=== PATIENT | female | born 1990 | race Caucasian/White ===

== ENCOUNTER 2018-04-02 13:51 | Emergency (ER) | payer MEDICAID | END 2018-04-02 15:00 | disposition home or self-care (01) | LOC: FTE 13:51 | DX: O99.89 Other specified diseases and conditions complicating pregnancy, childbirth and the puerperium (principal); O99.511 Diseases of the respiratory system complicating pregnancy, first trimester; J45.901 Unspecified asthma with (acute) exacerbation; Z76.0 Encounter for issue of repeat prescription | CPT/HCPCS: 99281; Z7502 ==